=== PATIENT | male | born 1980 | race Caucasian/White ===

== ENCOUNTER 2024-12-26 09:17 | Outpatient (AMB) | payer BC, SELFPAY ==
--- NOTE | 2024-12-26 09:16 | MHC.OFFWIV ---
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 no known injuries Patient Tobacco Use Status: Never used Tobacco Allergies No Known Allergies [No Known Allergies*] Allergy (Unverified 12/26/24 09:18) Do you need a note to return to daycare/school/sports/work: No HPI HPI Comments History of Present Illness Details He presents to office with L leg bruise Did not notice a bruise last night before going to work He does a lot of walking and sits and stands. [employer] presses for bio research. Said around 7am he brushed his legs together and felt a bump to inner L knee and noticed a lump with redness Since then has gotten larger and bright purple/blue Worse pinching pain; pain when palpating it Doesnt remember any trauma He is not on any blood thinners L leg has not given out on his or anything Pain with walking; pinches just to that area He denies any medicine for it Pt sees PCP in [facility] and said renal and liver function within normal limits and checked q6 month due to current medication regimen [facility] Social History Patient Tobacco Use Status: Never used Tobacco Review of Systems Const Denies chills and Denies fever(s) Eyes Denies change in vision Card Denies chest pain and Denies dyspnea Resp Denies cough and Denies dyspnea Musc Reports deformity (L medial knee edema, skin color changes, pinching pain), Denies numbness and Denies tingling Skin/Breast Denies erythema and Reports unusual bruising (L medical knee) Neuro Denies numbness, Denies tingling and Denies paresthesias Physical Exam Vital Signs: Last Vital Signs Pulse 84 12/26/24 09:18 BP 126/88 12/26/24 09:18 Pulse Ox 97 12/26/24 09:18 Oxygen Delivery Method Room Air 12/26/24 09:18 General: Non-toxic, NAD. Speaking full sentences. Skin: Warm dry throughout LLE--> medial aspect knee pt has indurated circular region approx 2cm x 3cm with overlaying blue/purple discoloration. + ttp. No laceration or abrasion No lower calf/leg edema noted Eye: EOMI Respiratory: No tachypnea Cardiac: LLE DP pulse 2+. No LLE calf tenderness or pedal edema MSK: + full ROM flexion/extension LLE at L knee. Neurology: Alert. No aphasia or facial droop. Gait without abnormality Psych: Good mood and affect Assessment & Plan Assessment & Plan (1) Hematoma of left lower leg: Code(s): S80.12XA - Contusion of left lower leg, initial encounter Plan: Pt seen and evaluated Area seems consistent with atraumatic hematoma MARYBETH given for compress Discussed tx of ice and elevation Discussed change of symptoms/coloration US ordered for DVT r/o and hematoma evaluation Pt agreed with tx Has no additional question or concerns Discussed warning signs such as increased pain, leg edema worse, CP, SOB etc go to ER\ Pt gave verbal undertanding (2) Leg pain, left: Code(s): M79.605 - Pain in left leg Plan: see above Orders: Orders US extremity nonvascular moore Today S80.12XA - Contusion of left lower leg, initial encounter US venous duplex LE LT Today S80.12XA - Contusion of left lower leg, initial encounter Coding Level of Care Code New Pt Level 3 (38765) Diagnoses Hematoma of left lower leg S80.12XA Leg pain, left M79.605
[2024-12-26 09:18] VITALS: BP 126/88; PULSE 84; O2SAT 97
== END 2024-12-26 09:54 | disposition home or self-care (01) ==
PROVIDERS: Visit Provider Physician Assistant
DX: S80.12XA Contusion of left lower leg, initial encounter (principal); M79.605 Pain in left leg

== ENCOUNTER 2024-12-26 09:17 | Outpatient (REF) | payer BC, SELFPAY ==
--- OUTSIDE RECORDS SUMMARY | 2024-12-26 11:23 | XMS_ITS | Encounter Summary ---
Author Organization [facility] Address [address] [place] [address] Phone Care Team Providers Care Dye House Supervisor Name Role Phone Jody Stephens MD Primary Care Provider [phone] Manuel Mcdaniel MD Primary Care Provider [phone] Encounter Details Date Type Department Care Team (Latest Contact Info) Description 07/03/2019 Transcribe Orders [facility] [address] [place] [address] Juvenal Hale MD [address] [place] [address], [address] [place], [place] [id number] [email or web address] Posterior cyclitis, unspecified laterality (Primary Dx) Social History Tobacco Use Types Packs/Day Years Used Date Smoking Tobacco: Never Assessed Sex and Gender Information Value Date Recorded Sex Assigned at Male 10/15/2022 10:48 AM EST Gender Identity Male 10/15/2022 10:48 AM EST Sexual Orientation Straight 10/15/2022 10 :48 AM EST documented as of this encounter Plan of Treatment Upcoming Encounters Date Type Department Care Team (Late st Contact Info) Description 05/07/2025 9:15 AM EDT Appointment [facility] [place] [facility] [address] [place] [address] [phone] Manuel Mcdaniel MD [address] [place], [place] [phone] [email or web address] documented as of this encounter Results * (ABNORMAL) Comprehensive metabolic panel (07/03/2019 10:41 AM EDT) SODIUM 143 133 - 146 mmol/L [facility] POTASSIUM 4.0 3.3 - 5.1 mmol/L [facility] CHLORIDE 106 96 - 108 mmol/L [facility] CO2 26 21 - 35 mmol/L [facility] BUN 11 6 - 19 mg/dL [facility] CREATININE 0.90 0.5 - 1.5 mg/dL [facility] GLUCOSE 112(H) 70 - 99 mg/dL [facility] ALBUMIN 4.4 3.9 - 4.8 g/dL [facility] TOTAL PROTEIN 7.0 6.5 - 8.0 g/dL [facility] CALCIUM 9.3 8.4 - 10.3 mg/dL [facility] ALKALINE PHOSPHATASE 58 39 - 117 U/L [facility] TOTAL BILIRUBIN 0.3 0.0 - 1.2 mg/dL [facility] AST 18 0 - 37 U/L [facility] ALT 22 0 - 40 U/L [facility] GLOBULIN 2.6 1 - 4.8 g/dL [facility] EGFR 109 >59 mL/min/1.7 3m2 [facility] Comment:If patient is black, multiply result by 1.159. Estimated glomerular filtration rate calculated using the CKD-EPI equation. ANION GAP 15 10 - 20 mmol/L [facility] Blood 07/03/2019 10:4 1 AM EDT 07/03/2019 10:52 AM EDT Juvenal Hale MD LAB BLOOD ORDERABLES [facility] [address] [place] [address] * Quantiferon-TB Gold (07/03/2019 10:41 AM EDT) Pathologist [facility] QuantiFERON-TB Gold Negative Negative [facility] Comment: (NOTE) No interferon-gamma response to M. tuberculosis antigens was detected. Infection with M. tuberculosis is unlikely. A single negative result does not exclude infection with M. tuberculosis. In patients at high risk for M.tuberculosis infection, a second test should be considered in accordance with the 2017 ATS/IDSA/CDC Clinical Practice Guidelines for Diagnosis of Tuberculosis in Adults and Children [Carlos Manuel DM et. al. Clin. Infect. Dis. 2017;64(2):111-115]. The reference range for the 'TB1 Ag minus Nil Result' and 'TB2 Ag minus Nil Result' is an Interferon-gamma level <0.35 IU/mL. TB1 Ag minus Nil 0.00 IU/mL [facility] [address] TB2 Ag minus Nil 0.00 IU/mL [facility]/PATH [address] Mitogen minus Nil 9.58 IU/mL [facility] LAB MED/[facility] [place] [address] Nil Result 0.02 IU/mL [facility] [place] Blood 07/03/2019 10:4 1 AM EDT 07/03/2019 10:52 AM EDT Juvenal Hale MD LAB BLOOD ORDERABLES Performing Organization Address [facility] de Phone Number [facility] [place] [address] [place] [address] * Syphilis antibody screen (07/03/2019 10:41 AM EDT) RPR NON-REACTIV E NON-REACTI VE [facility] Blood 07/03/2019 10:4 1 AM EDT 07/03/2019 10:52 AM EDT Juvenal Hale MD LAB BLOOD ORDERABLES Performing Organization Address City/[facility] Co de Phone Number [address] [address] * Hepatitis B surface antigen (07/03/2019 10:41 AM EDT) HBV SURFACE ANTIGEN NON-REACTI VE NON-REACTI VE [facility] Blood 07/03/2019 10:4 1 AM EDT 07/03/2019 10:52 AM EDT Juvenal Hale MD LAB BLOOD ORDERABLES Performing Organization Address City/[facility] Co de Phone Number [address] [address] * Lysozyme (muramidase), blood (07/03/2019 10:41 AM EDT) LYSOZYME 4.5 2.7 - 9.4 mcg/mL [facility] DPT OF LAB MED AND PAT+ Comment: (NOTE) ADDITIONAL INFORMATION This test was developed and its performance characteristics determined by [facility] in a manner consistent with CLIA requirements. This test has not been cleared or approved by the U.S. Food and Drug Administration. Blood 07/03/2019 10:4 1 AM EDT 07/03/2019 10:49 AM EDT Juvenal Hale MD LAB BLOOD ORDERABLES Performing Organization Address [facility] Co de Phone Number [facility] DPT OF LAB MED AND PAT+ [address] [place] [address] * Lyme screen with reflex to Western blot, blood (07/03/2019 10:41 AM EDT) Lyme AB IgG Negative Negative [facility] Lyme AB IgM Negative Negative [facility] Blood 07/03/2019 10:4 1 AM EDT 07/03/2019 10:52 AM EDT Juvenal Hale MD LAB BLOOD ORDERABLES Performing Organization Address [facility] Co de Phone Number [address] [address] * HLA-B27, BLOOD (07/03/2019 10:41 AM EDT) HLA-B27 RESULT Negative Not Applicable [facility] DPT OF LAB MED AND PAT+ INTERPRETATION SEE NOTE [facility] DPT OF LAB MED AND PAT+ Comment: (NOTE) HLA-B27 antigen was not detected. ADDITIONAL INFORMATION Method: Flow Cytometry Blood 07/03/2019 10:4 1 AM EDT 07/03/2019 10:49 AM EDT Juvenal Hale MD LAB BLOOD ORDERABLES [facility] DPT OF LAB MED AND PAT+ [address] [place] [address] * (ABNORMAL) Angiotensin converting enzyme, blood (07/03/2019 10:41 AM EDT) ANGIOTENSIN CONV. ENZ <5(L) 16 - 85 U/L [facility] DPT OF LAB MED AND PAT+ Blood 07/03/2019 10:4 1 AM EDT 07/03/2019 10:49 AM EDT Juvenal Hale MD LAB BLOOD ORDERABLES Performing Organization Address [facility] Co de Phone Number [facility] DPT OF LAB MED AND PAT+ [address] [place] [address] * CBC and differential (07/03/2019 10:41 AM EDT) WBC 8.59 3.40 - 11.20 K/uL [facility] RBC 4.88 4.50 - 5.50 M/uL [facility] HGB 14.9 13.0 - 17.0 g/dL [facility] HCT 43.4 40.0 - 51.0 % [facility] PLT 184 130 - 400 K/uL [facility] MCV 88.9 79.0 - 98.0 fL [facility] MCH 30.5 27.0 - 34.8 pg [facility] MCHC 34.3 31.5 - 36.0 g/dL [facility] RDW 12.7 10.8 - 14.6 % [facility] MPV 9.7 9.4 - 12.4 fl [facility] NRBC 0.00 0.00 /100 WBCs [facility] ABSOLUTE NRBC 0.00 0.00 K/uL [facility] DIFF METHOD Auto [facility] NEUTS 67.3 45.30 - 77.70 % [facility] LYMPHS 24.3 12.30 - 39.70 % [facility] MONOS 5.5 4.10 - 12.80 % [facility] EOS 2.4 0 - 7.2 % [facility] BASOS 0.3 0 - 2.80 % [facility] Granulocytes, immature (%) 0.2 0.0 - 0.9 % [facility] ABSOLUTE NEUTS 5.77 1.40 - 7.70 K/uL [facility] ABSOLUTE LYMPHS 2.09 0.60 - 3.20 K/uL [facility] ABSOLUTE MONOS 0.47 0.11 - 0.59 K/uL [facility] ABSOLUTE EOS 0.21 0.01 - 0.50 K/uL [facility] ABSOLUTE BASOS 0.03 0.00 - 0.08 K/uL [facility] Granulocytes, immature 0.02 0.00 - 0.05 K/uL [facility] Blood 07/03/2019 10:4 1 AM EDT 07/03/2019 10:52 AM EDT Juvenal Hale MD LAB BLOOD ORDERABLES [address] [address] documented in this encounter Visit Diagnoses Diagnosis Posterior cyclitis, unspecified laterality- Primary documented in this encounter Care Teams Dye House Supervisor Relationship Specialty Start Date End Date Jody Stephens MD [address] [place] [address] Dr CHIN [address] [place] [phone] PCP - General Internal Medicine 07/03/19 12/01/20 Manuel Mcdaniel MD [address] [place] [phone] [email or web address] PCP - General Internal Medicine 12/02/20 documented as of this encounter Additional Source Comments The information contained in this document represents components of the legal health record. It is not the complete legal health record.[facility]
--- OUTSIDE RECORDS SUMMARY | 2024-12-26 11:23 | XMS_ITS | Encounter Summary ---
Author Organization [facility] Address [address] [place] [id number] Phone Care Team Providers Care Warp Knitter Helper Name Role Phone Manuel Mcdaniel MD Primary Care Provider [phone] Reason for Visit * Reason Comments Medication Refill Encounter Details Date Type Department Care Team (Late st Contact Info) Description 12/21/2024 Refill [facility] Internal Medicine [address] [place] [address] Manuel Mcdaniel MD [address] [place] [address] [email or web address] Medication Refill Social History Tobacco Use Types Packs/Day Years Used Date Smoking Tobacco: Never Passive Smoke Exposure: Yes Smokeless Tobacco: Never Comments:mother and father s moked during childhood Alcohol Use Standard Drinks/Week Comments Yes 0 (1 standard drink = 0.6 oz pur e alcohol) casual Child or Family Care Answer Date Record ed Do you have problems with on e of the following making it difficult for you to work, study, or receive health care? No 11/01/2024 Education Answer Date Recorded Are you interested in help w ith more adult education (for example, completing high school, GED, job training, learning the Indonesian language, technical skills, or developing parenting skills)? No 11/01/2024 Are you concerned about learning? Not on file 11/01/2024 No 11/01/2024 Yes 11/01/2024 Food Answer Date Recorded Within the past 6 months we worried whether our food would run out before we got money to buy more. Never True 11/01/2024 Within the past 6 months the food we bought just didn't last and we didn't have enough money to get more. Never True Residential Stability Answer Date Recor ded What is your housing situation today? I have tressa morfin 11/01/2024 How many times have you move d in the past 12 months? Zero (I did not move) 11/01/2024 Paying for Meds Answer Date Recorded Do you have trouble paying for medicines? I radha se not to answer 11/01/2024 Paying Utility Bills Answer Date Record ed Do you have trouble paying y our heating or electricity bill? I choose not to answer 11/01/2024 Transportation Answer Date Recorded Has the lack of transportati on kept you from medical appointments or from getting medications? No 11/01/2024 Unemployment Answer Date Recorded Are you currently unemployed or working on a part-time or temporary basis, and looking for work? No 11/01/2024 Digital Access Answer Date Recorded No 11/01/2024 Yes 11/01/2024 Do you have reliable internet access at home? Ye s 11/01/2024 Do you have a device (e.g., phone, tablet, computer) with a working camera? Yes 11/01/2024 Intimate Partner Violence Answer Date R ecorded Denied Basic Needs Not on file 11/01/2024 In the past 12 months have y ou been in a relationship with a person who hurts, threatens, or tries to control you? No 11/01/2024 Worried food would run out Not on file 11/01 In the past 12 months have y ou been in a relationship with a person who hurts, threatens, or tries to control you? No 11/01/2024 Sex and Gender Information Value Date Recorded Sex Assigned at Male 10/15/2022 10:48 AM EST Gender Identity Male 10/15/2022 10:48 AM EST Sexual Orientation Straight 10/15/2022 10 :48 AM EST documented as of this encounter Progress Notes * Judi Christopher CMA - 12/21/2024 7:06 AM EDT Rx Care Gap Status - Instructions for Clinical Staff (prescriber discretion applies): n/a Visit Info Last visit: 11/01/2024 Manuel Mcdaniel MD - [facility] > Requested f/u: Return in about 6 months (around 05/01/2025) for Recheck. Upcoming visit: 05/07/2025 Manuel Mcdaniel MD - Internal Medicine [facility] ACTIONS TAKEN BY Judi Christopher CMA - No action needed by clinical staff Cholesterol Medication Rx Protocol - atorvastatin calcium Criteria met; renew for up to 12 months. Visit in the past 14 months: Yes Clinical criteria: - Lipid panel within past year: Yes Lab Results Component Value Date LDL 102 11/02/2024 HDL 46 11/02/2024 CARDIAC RISK RATIO 3.7 11/02/2024 TRIGLYCERIDES 117 11/02/2024 CHOLESTEROL 171 11/02/2024 documented in this encounter Plan of Treatment Upcoming Encounters Date Type Department Care Team (Late st Contact Info) Description 05/07/2025 9:15 AM EDT Appointment [facility] Internal Medicine [address] [place] [address] Manuel Mcdaniel MD [address] [place] [address] [email or web address] documented as of this encounter Visit Diagnoses Diagnosis Hyperlipidemia Other and unspecified hyperlipidemia documented in this encounter Additional Health Concerns Assessment Noted Time PHQ-9 Depression Total Score: 4 11/01/19 25 9:38 AM EST PHQ-2 Depression Total Score: 3 11/01/19 25 9:38 AM EST documented as of this encounter Care Teams Warp Knitter Helper Relationship Specialty Start Date End Date Manuel Mcdaniel MD [address] [place] [address] [email or web address] PCP - General Internal Medicine 12/02/20 documented as of this encounter Additional Source Comments The information contained in this document represents components of the legal health record. It is not the complete legal health record.[facility]
--- OUTSIDE RECORDS SUMMARY | 2024-12-26 11:23 | XMS_ITS | Clinical Summary ---
Author Organization Formerly [facility] Address [address] [place] [phone] Phone Care Team Providers Care Experimental Physicist Name Role Phone Manuel Mcdaniel MD Primary Care Provider [phone] Allergies No known active allergies Medications Medication Sig Dispensed Refills Start Date End Date Status albuterol (PROAIR HFA) 90 mcg/actuation inhalerIndications :Mild intermittent asthma without complication Inhale 2 puffs into the lungs every 6 (six) hours as needed for wheezing. 1 Inhaler 1 01/28/2021 Active cetirizine (ZYRTEC) 10 MG tablet Take 10 mg by mouth daily. Active acetaminophen (TYLENOL) 650 MG CR tablet Take 1,300 mg by mouth 2 (two) times a day as needed for pain (specific location in comments). Active fluticasone propionate (FLONASE) 50 mcg/actuation nasal sprayIndications:P ND (post-nasal drip) 1 spray by Nasal route daily. 16 g 2 10/19/2023 Active citalopram (CELEXA) 40 MG tabletIndications: Anxiety and depression take one tablet by mouth every day 90 tablet 3 12/20/2023 Active naproxen sodium (ALEVE) 220 MG tablet Take 220 mg by mouth as needed for pain (specific location in comments). Active lisinopril (PRINIVIL,ZESTRIL) 40 MG tabletIndications: Essential hypertension TAKE ONE TABLET BY MOUTH EVERY DAY 30 tablet 11 11/21/2024 Active atorvastatin (LIPITOR) 20 MG tabletIndications: Hyperlipidemia TAKE ONE-HALF TABLET BY MOUTH EVERY DAY 45 tablet 3 12/21/2024 Active atorvastatin (LIPITOR) 20 MG tabletIndications: Hyperlipidemia Take 0.5 tablets (10 mg total) by mouth daily. 45 tablet 3 12/01/2023 5 Discontinued Active Problems Problem Noted Date Diagnosed Date PND (post-nasal drip) 10/19/2023 Acute otitis externa of right ear 05/13/2023 Assessment & Plan (05/13/2023 11:49 AM EDT): Here for re ildefonso- currently taking cortomycin ear drop 4 x a day that he got at . Cont same. He will reach out if s/s worsen Obstructive sleep apnea alan umberto with continuous positive airway pressure (CPAP) 08/17/2021 Assessment & Plan (11/01/2024 10:18 AM EST): DOE for which she is using CPAP machine we are encouraging him to stay consistent with using it. Assessment & Plan (03/10/2022 9:26 AM EDT): He is compliant with the CPAP machine. Assessment & Plan (08/17/2021 9:45 AM EST): Patient compliant with treatment, continue CPAP for mask as before, patient deriving good benefit from this treatment. Anxiety and depression 08/17/2021 Assessment & Plan (11/01/2024 10:19 AM EST): Anxiety and depression managed with Celexa, will continue to follow in 6 months and if he wishes we can investigate increasing the dose if need be at this point we will keep it at 40 mg. Assessment & Plan (10/15/2022 11:16 AM EST): Depression and anxiety appears to be held in check with the Celexa at its current dosing. He does have counseling through work available but he finds that everything is going smoothly enough where its not needed at this time. We will continue with the Celexa at its current dosing and follow-up in 6 months. Assessment & Plan (10/12/2021 9:10 AM EST): Celexa is working well at the current dosing, will maintain him now at Celexa 40 mg. Follow-up on physical exam in 5 months. Assessment & Plan (08/17/2021 9:48 AM EST): Main reason the patient is following up with us aside from dyslipidemia and hypertension includes also the Celexa which we have taken on as prescribers. With the Celexa 20 mg, the patient felt was inadequately treating depression anxiety and he had bumped up the Celexa to 40 mg at his brother's advice who is a nurse. I first felt a little bit of brain fog but then felt better overall on the new dose. He did take it down to Celexa 20 mg and waited to this appointment to discuss it with me. Since he seems to be doing better on the higher dose we will increase it formally then to 40 mg though I do advised him to consult his first before increasing medicine. We will follow up then in 8 weeks with prior labs. Routine general medical exam in[facility] 03/04/2021 Assessment & Plan (11/01/2024 10:20 AM EST): Exam positive for obesity but improved from previous, otherwise negative exam. Lungs are clear, heart regular rate and rhythm. Will see the patient back in 6 months to follow-up on his chronic medical conditions. He will come back for a Chem-12 CBC lipid profile tomorrow fasting. Given the 3-year history of occasional nausea vomiting and dyspepsia with fullness within the upper abdomen will make a referral to [facility]. Assessment & Plan (10/19/2023 10:15 AM EST): The patient's labs were discussed, all the metrics have improved and in the setting of weight loss. The patient states that he had reduced his soda intake drastically and then I told him that had reflected itself in the lab work and his weight loss. I encouraged him to continue with that line of good habit forming. His exam positive for an umbilical hernia which I made mention of. Also we saw the postnasal drip cobblestoning very pronounced at the back of the throat that matched up well with his complaint of postnasal drip. Called in some Flonase and went over how to use it properly. I can see him back in 6 months. His anxiety is well-controlled with the Celexa at 40 and his blood pressure is well-controlled at 40 mg of lisinopril. He is on atorvastatin 20 and this appears to be working well for his cholesterol. We can repeat labs in 6 months. Assessment & Plan (03/10/2022 9:28 AM EDT): And counseled the patient on low-sodium diet and we talked about increments and dietary changes, he is doing Golo to try and lose weight. We encouraged him to use this avenue to see if he can sustain weight loss. We will see him back in regards to his hypertension dyslipidemia and anxiety disorder and will repeat A1c and if A1c normal then we will just do it yearly. So 15-minute follow-up with prior labs in 6 months. Assessment & Plan (03/04/2021 9:39 AM EDT): No overt pathology seen on exam except for patient's obesity. Blood pressure arguably could be better, we encourage the patient to a low-sodium diet and counseled him on hidden salt which she was already aware of. Class 2 obesity due to exces s calories without serious comorbidity with body mass index (BMI) of 39.0 to 39.9 in adult 12/01/2020 Assessment & Plan (11/01/2024 10:19 AM EST): He had lost some weight intentionally and has kept it down from 310-2 79 so we are encouraging him to continue discretionary diet with moderate calorie restriction perhaps with the goal for an additional 20 pounds in the next 6 months. Assessment & Plan (10/15/2022 11:15 AM EST): counseled the pt on eating a low calorie diet to reduce excess weight. We talked about calorie restriction, weight watchers and exercise as possible to help move weight in the right direction. We can stop monitoring the hemoglobin A1c which comes back each time well within normal range. Assessment & Plan (03/10/2022 9:26 AM EDT): counseled the pt on eating a low calorie diet to reduce excess weight. We talked about calorie restriction, weight watchers and exercise as possible to help move weight in the right direction. Assessment & Plan (10/12/2021 9:11 AM EST): He has a hemoglobin A1c in the high normal range, we encouraged him to continue to work on his diet over the winter. Assessment & Plan (03/04/2021 9:44 AM EDT): counseled the pt on eating a low calorie diet to reduce excess weight. We talked about calorie restriction, weight watchers and exercise as possible to help move weight in the right direction. Assessment & Plan (12/01/2020 8:13 PM EDT): Obese for height counseled the pt on eating a low calorie diet to reduce excess weight. We talked about calorie restriction, weight watchers and exercise as possible to help move weight in the right direction. We will work with the patient on his physical exam to see if we can move in this direction. Essential hypertension 12/01/2020 Assessment & Plan (11/01/2024 10:18 AM EST): Blood pressure in good control, we can follow-up in 6 months and we encouraged him to check blood pressure at home occasionally. Assessment & Plan (10/15/2022 11:15 AM EST): Hypertension well controlled with current listed antihypertensives. Denies side effects No change to dosing. Low Sodium diet reinforced. Continue to monitor condition. Labs done showing electrolytes kidney function well within normal range. Low- sodium diet reinforced. Assessment & Plan (03/10/2022 9:26 AM EDT): Hypertension well controlled with current listed antihypertensives. Denies side effects No change to dosing. Low Sodium diet reinforced. Continue to monitor condition. Assessment & Plan (10/12/2021 9:11 AM EST): Hypertension well controlled with current listed antihypertensives. Denies side effects No change to dosing. Low Sodium diet reinforced. Continue to monitor condition. Electrolytes kidney function well within normal range. Assessment & Plan (08/17/2021 9:45 AM EST): Hypertension well controlled with current listed antihypertensives. Denies side effects No change to dosing. Low Sodium diet reinforced. Continue to monitor condition. Check c7 before next appt. Assessment & Plan (12/01/2020 8:11 PM EDT): Blood pressure appears to be well controlled on the current regimen of lisinopril. Low-sodium diet reinforced, patient can potentially come off of the lisinopril with weight loss. Watch out for hidden salts. Obtain electrolytes kidney function at a later date, patient will come back fasting. Hyperlipidemia 12/01/2020 Assessment & Plan (11/01/2024 10:19 AM EST): Will check fasting labs, continue statin therapy and will check liver enzymes as well. Assessment & Plan (10/15/2022 11:16 AM EST): Low-dose Lipitor at 10 mg holding the LDL within target range, continue as you are doing. Recheck in 6 months with liver enzymes. Assessment & Plan (03/10/2022 9:27 AM EDT): Previous lipid profile within target range, continue current management, reinforcing low fat diet, emphasizing lean cuts of meat and low dairy fat, while increasing fiber. Assessment & Plan (10/12/2021 9:11 AM EST): Lipid panel came back within target range continue atorvastatin at 20 mg. Assessment & Plan (08/17/2021 9:46 AM EST): In December lipid panel on the Lipitor 20 mg appears to be adequately treated, reassess prior to next visit in 8 weeks. Low-fat diet suggested. Assessment & Plan (12/01/2020 8:12 PM EDT): Continue atorvastatin 20 mg, will obtain a lipid profile with liver enzymes for baseline. Will adjust atorvastatin accordingly if need be, low-fat diet reinforced. Especially saturated fats dairy in both animal. Resolved Problems Problem Noted Date Diagnosed Date Resolved Date Acute bronchitis 09/15/2022 10/15/2022 Assessment & Plan (09/15/2022 10:07 AM EST): Although this started off as a viral bronchitis there are components noted speak for persistence through secondary bacterial infection therefore the doxycycline 100 mg twice daily for 7 days. In regards to the eyes after the conjunctivitis, apply 1 drop of antihistamine twice daily for about 5 days. Encounters Date Type Department Care Team Description 12/21/2024 Refill [facility] Internal Medicine [address] [place] [address] Manuel Mcdaniel MD Medication Refill 11/21/2024 Refill [facility] [address] [place] [address] Manuel Mcdaniel MD Medication Refill 11/13/2024 Telephone [facility] Internal Medicine [address] [place] [address] Manuel Mcdaniel MD Results 11/02/2024 8:44 AM EST - 11/02/2024 11:59 PM EST Hospital Encounter [facility] [address] [place] [address] Manuel Mcdaniel MD Discharge Disposition: Home or Self Care 11/01/2024 9:30 AM EST Office Visit [facility] [address] [place] [address] Manuel Mcdaniel MD Routine general medical examination at a health care facility (Primary Dx); Essential hypertension; Hyperlipidemia, unspecified hyperlipidemia type; Obstructive sleep apnea treated with continuous positive airway pressure (CPAP); Class 2 obesity due to excess calories without serious comorbidity with body mass index (BMI) of 39.0 to 39.9 in adult; Anxiety and depression; Nausea and vomiting, unspecified vomiting type from Last 3 Months Immunizations Name Administration Dates Next Due Influenza Trivalent w/ Preservative IM 4,06/29/2013 Td (adult) 5 Lf Tetanus Toxoid, PF, Adsorbed Family History Medical History Relation Comments Hypertension Father Melanoma Maternal Grandfather Stomach cancer Maternal Grandmother Diverticulitis Mother Hyperlipidemia Mother Pneumonia Paternal Grandmother Leukemia Sister Relation Status Comments Father Maternal Grandfather Maternal Grandmother Mother Paternal Grandmother Sister (Age 11) of leukem ia Social History Tobacco Use Types Packs/Day Years Used Date Smoking Tobacco: Never Passive Smoke Exposure: Yes Smokeless Tobacco: Never Tobacco Cessation:Counseling Given: Not Answered Comments:mother and father smoked during childhood Alcohol Use Standard Drinks/Week Comments [...] high school, GED, job training, learning the [place] language, technical skills, or developing parenting skills)? [...] Orientation Straight 10/15/2022 10 :48 AM EST Last Filed Vital Signs Vital Sign Reading Time Taken Comments Blood Pressure 122/62 11/01/2024 9:35 AM EST Pulse 85 11/01/2024 9:35 AM EST Temperature 36.6 ??C (97.8 ??F) 11/01/2024 9:35 AM ES T Respiratory Rate 20 11/01/2024 9:35 AM EST Oxygen Saturation 98% 11/01/2024 9:35 AM EST Inhaled Oxygen Concentration - - Weight 126.7 kg (279 lb 6.4 oz) 11/01/2024 9:35 AM EST Height 174.8 cm (5' 8.82 ) 11/01/2024 9:35 AM ES T Body Mass Index 41.48 11/01/2024 9:35 AM EST Plan of Treatment Upcoming Encounters Date Type Department Care Team (Late st Contact Info) Description 05/07/2025 9:15 AM EDT Appointment [facility] [place] [facility] [address] [place] [address] Manuel Mcdaniel MD [address] [place] [address] [email or web address] Health Maintenance Due Date Last Done Comments INFLUENZA VACCINE (#1) 2024 06/21/2014, 10/18/ 2013 COVID-19 VACCINE ( season) 2024 05/03/2021, 04/12/2021 BLOOD PRESSURE 05/01/2025 11/01/2024 DEPRESSION SCREENING 11/01/2025 11/01/2024, 11/01/19 CREATININE LEVEL 11/02/2025 11/02/2024, 10/2023, 10/12/2022, Additional history exists POTASSIUM LEVEL 11/02/2025 11/02/2024, 020 10/2023, 10/12/2022, Additional history exists SCREENING FOR DIABETES 11/02/2027 11/02/2024, 2022 LIPID PANEL 11/02/2029 11/02/2024, 10/2023, 10/12/2022, Additional history exists Adult Td,Tdap Booster 03/04/2031 03/04/2021 HEPATITIS C SCREENING Completed 12/23/2020 HIV ONE-TIME SCREENING (18-65 YEARS) Completed 12/23/2020 SMOKING STATUS SCREENING (Once After 26 Yrs) Completed 11/01/2024 HEPATITIS A VACCINES Aged Out No long er eligible based on patient's age to complete this topic HIB VACCINES Aged Out No longer eligi ble based on patient's age to complete this topic MENINGOCOCCAL VACCINES (ACWY) Aged Out No longer eligible based on patient's age to complete this topic PNEUMOCOCCAL VACCINES (0-49 years) Aged Out No longer eligible based on patient's age to complete this topic Medical Devices Not on file Procedures Procedure Name Priority Date/Time Associated Diagnosis Comments LIPID PANEL Routine 11/02/2024 8:44 AM EST Hyperlipidemia, unspecified hyperlipidemia type CBC Routine 11/02/2024 8:44 AM EST Routine general medical examination at a health care facility COMPREHENSIVE METABOLIC PANEL Routine 11/02/2024 8:44 AM EST Routine general medical examination at a health care facility Essential hypertension Hyperlipidemia, unspecified hyperlipidemia type HEPATITIS C ANTIBODY, QUALITATIVE Routine 12/23/2020 8:12 AM EDT Encounter for hepatitis C screening test for low risk patient from Last 3 Months or Most Recently Relevant to Health Maintenance Results * Comprehensive metabolic panel (11/02/2024 8:44 AM EST) SODIUM 140 133 - 146 mmol/L [facility] POTASSIUM 4.5 3.3 - 5.1 mmol/L [facility] CHLORIDE 103 96 - 108 mmol/L [facility] CO2 26 21 - 35 mmol/L [facility] BUN 16 6 - 19 mg/dL [facility] CREATININE 0.90 0.5 - 1.5 mg/dL [facility] GLUCOSE 72 70 - 99 mg/dL [facility] ALBUMIN 4.6 3.9 - 4.8 g/dL [facility] TOTAL PROTEIN 6.9 6.5 - 8.0 g/dL [facility] CALCIUM 9.7 8.4 - 10.3 mg/dL [facility] ALKALINE PHOSPHATASE 59 39 - 117 U/L [facility] TOTAL BILIRUBIN 0.7 0.0 - 1.2 mg/dL [facility] AST 19 0 - 37 U/L [facility] ALT 21 0 - 40 U/L [facility] GLOBULIN 2.3 1 - 4.8 g/dL [facility] EGFR 109 >59 mL/min/1.7 3m2 [facility] Comment:Estimated glomerular filtration rate calculated using the CKD-EPI refit equation. ANION GAP 16 10 - 20 mmol/L [facility] Blood 11/02/2024 8:44 AM EST 11/02/2024 8:46 AM EST Manuel Mcdaniel MD LAB BLOOD ORDERABLES [address] [address] * CBC (11/02/2024 8:44 AM EST) WBC 8.88 4.00 - 11.00 K/uL [facility] RBC 5.01 4.50 - 5.90 M/uL [facility] HGB 15.1 13.5 - 17.5 g/dL [facility] HCT 45.7 41.0 - 53.0 % [facility] PLT 175 150 - 450 K/uL [facility] MCV 91.2 80.0 - 100.0 fL [facility] MCH 30.1 27.0 - 31.0 pg [facility] MCHC 33.0 32.0 - 36.0 g/dL [facility] RDW 13.1 11.5 - 14.5 % [facility] MPV 9.8 8.4 - 12.0 fL [facility] NRBC 0.00 0.00 /100 WBCs [facility] ABSOLUTE NRBC 0.00 0.00 K/uL [facility] Blood 11/02/2024 8:44 AM EST 11/02/2024 8:46 AM EST Manuel Mcdaniel MD LAB BLOOD ORDERABLES Performing Organization Address [facility] Co de Phone Number [address] [phone] * Lipid panel (11/02/2024 8:44 AM EST) HDL 46 mg/dL [facility] Comment: ? Interpretation <40 mg/dL: Low HDL cholesterol (major risk factor for CHD) Greater than or equal to 60 mg/dL: High HDL cholesterol ( negative risk factor for CHD) HDL - cholesterol is affected by a number of factors, e.g. smoking, excerise, hormones, sex and age. CHOLESTEROL 171 0 - 240 mg/dL [facility] TRIGLYCERIDES 117 30 - 160 mg/dL [facility] LDL 102 50 - 129 mg/dL [facility] Comment: LDL levels in terms of risk for coronary heart disease: <100 mg/dL: Optimal 100-129 mg/dL: Near or above optimal 130-159 mg/dL: Borderline high 160-189 mg/dL: High >190 mg/dL: Very High CARDIAC RISK RATIO 3.7 3.4 - 5.0 C [facility] Blood 11/02/2024 8:44 AM EST 11/02/2024 8:47 AM EST Manuel Mcdaniel MD LAB BLOOD ORDERABLES Performing Organization Address [facility] Co de Phone Number [address] [phone] * Hepatitis C antibody, qualitative (12/23/2020 8:12 AM EDT) HCV NON-REACTIV E NON-REACTI VE [facility] Blood 12/23/2020 8:12 AM EDT 12/23/2020 8:18 AM EDT Manuel Mcdaniel MD LAB BLOOD ORDERABLES [address] [address] from Last 3 Months or Most Recently Relevant to Health Maintenance Care Teams Experimental Physicist Relationship Specialty Start Date End Date Manuel Mcdaniel MD [address] [place] [address] [email or web address] PCP - General Internal Medicine 12/02/20 Additional Source Comments The information contained in this document represents components of the legal health record. It is not the complete legal health record.[facility]
--- OUTSIDE RECORDS SUMMARY | 2024-12-26 11:23 | XMS_ITS | Encounter Summary ---
Author Organization [facility] Address [address] [place] [phone] Phone Care Team Providers Care Professor Of Surgery Name Role Phone Jody Stephens MD Primary Care Provider [phone] Manuel Mcdaniel MD Primary Care Provider [phone] Reason for Referral * Occupational Therapy (Routine) - Closed Specialty Diagnoses / Procedures Referred By [facility] galindo Referred To Contact Occupational Therapy Diagnoses Encounter for rehabilitation Left Dorsal Distal Carpal Row Procedures Evaluate & Treat Antwon Irving MD [address] [place] [phone] Email: [email or web address] [place] [address] Referral ID Status Reason Start Date Expiration Date Visits Re quested Visits Authorized [id number] Closed 08/14/2019 09/11/2020 15 15 Encounter Details Date Type Department Care Team (Latest Contact Info) Description 08/14/2019 Transcribe Orders [facility] [address] [place] [address] [phone] Antwon Irving MD [address] [place] [phone] [email or web address] Encounter for rehabilitation (Primary Dx) Social History Tobacco Use Types [...] Info) Description 05/07/2025 9:15 AM EDT Appointment [facility] Internal Medicine [address] [place] [address] Manuel Mcdaniel MD [address] [place] [address] Scheduled Referrals Name Type Priority Associated Diagnoses Orde r Schedule Ambulatory referral to [facility] Occupational Therapy Outpatient Referral Routine Encounter for rehabilitation Ordered: 08/14/2019 documented as of this encounter Visit Diagnoses Diagnosis Encounter for rehabilitation- Primary documented in this encounter Care Teams Professor Of Surgery Relationship Specialty Start Date End Date Jody Stephens MD [address] [place] [address] [place] [address] PCP - General Internal Medicine 07/03/19 12/01/20 Manuel Mcdaniel MD [address] [place] [address] PCP - General Internal Medicine 12/02/20 documented as of this encounter Additional Source Comments The information contained in this document represents components of the legal health record. It is not the complete legal health record.[facility]
== END 2024-12-26 09:18 | disposition home or self-care (01) ==
LOC: HO.HMGCX 09:17
PROVIDERS: Visit Provider Physician Assistant
DX: Z13.89 Encounter for screening for other disorder (principal)

== ENCOUNTER 2024-12-26 13:28 | Outpatient (REF) | payer BC, SELFPAY ==
--- NOTE | ~2024-12-26 | US_ITS ---
EXAMINATION: US TRIPLEX LOWER EXTREMITY, LEFT CLINICAL INFORMATION: Bruising to left knee with unknown history of injury. Lower extremity edema. COMPARISON: None available. TECHNIQUE: Color-flow triplex imaging with spectral analysis and compression Doppler were performed on the left lower extremity. FINDINGS: Respiratory variation, normal compression and augmented flow are noted throughout the left lower extremity. The visualized common femoral vein, superficial femoral vein, profunda femoral vein, popliteal vein and midcalf peroneal and posterior tibial venous segments show no evidence of deep venous thrombosis. There is no Hayes's cyst. In the medial left knee, subjacent to the region of bruising, there is a small hematoma measuring 4.0 x 1.1 x 3.0 cm. US/US venous duplex LE IMPRESSION: 1. No evidence of deep venous thrombosis involving the left lower extremity. 2. Small hematoma in the medial knee subjacent to the area of bruising. Electronically signed by: López Akbar MD 12/26/2024 02:10 PM EDT
--- OUTSIDE RECORDS SUMMARY | 2024-12-26 16:04 | XMS_ITS | Encounter Summary ---
Author Organization [facility] Address [address] [place] [address] Phone Care Team Providers Care Certified Wellness Program Coordinator Name Role Phone Jody Stephens MD Primary Care Provider [phone] Manuel Mcdaniel MD Primary Care Provider [phone] Encounter Details Date Type Department Care Team (Latest Contact Info) Description 07/03/2019 Transcribe Orders [facility] Laboratory [address] [place] [address] Juvenal Hale MD [address] [place] [address], [address] [place], [place] [id number] [email or web address] Posterior cyclitis, unspecified laterality (Primary Dx) Social [...] Description 05/07/2025 9:15 AM EDT Appointment [facility] [address] [place] [phone] Manuel Mcdaniel MD [address] [place], [place] [id number] [email or web address] documented as of this encounter Results * (ABNORMAL) Comprehensive metabolic panel (07/03/2019 10:41 AM EDT) SODIUM 143 133 - 146 mmol/L POTASSIUM 4.0 3.3 - 5.1 mmol/L CHLORIDE 106 96 - 108 mmol/L CO2 26 21 - 35 mmol/L BUN 11 6 - 19 mg/dL CREATININE 0.90 0.5 - 1.5 mg/dL GLUCOSE 112(H) 70 - 99 mg/dL ALBUMIN 4.4 3.9 - 4.8 g/dL TOTAL PROTEIN 7.0 6.5 - 8.0 g/dL CALCIUM 9.3 8.4 - 10.3 mg/dL ALKALINE PHOSPHATASE 58 39 - 117 U/L TOTAL BILIRUBIN 0.3 0.0 - 1.2 mg/dL AST 18 0 - 37 U/L ALT 22 0 - 40 U/L GLOBULIN 2.6 1 - 4.8 g/dL EGFR 109 >59 mL/min/1.7 3m2 Comment:If patient is black, multiply result by 1.159. Estimated glomerular filtration rate calculated using the CKD-EPI equation. ANION GAP 15 10 - 20 mmol/L Blood 07/03/2019 10:4 1 AM EDT 07/03/2019 10:52 AM EDT Juvenal Hale MD LAB BLOOD ORDERABLES [address] [place] [address] * Quantiferon-TB Gold (07/03/2019 10:41 AM EDT) Pathologist [facility] QuantiFERON-TB Gold Negative Negative [place] [facility]PATH [place] Comment: (NOTE) No [...] Ag minus Nil 0.00 IU/mL [facility]PATH [address] TB2 Ag minus Nil 0.00 IU/mL [facility]/PATH [address] Mitogen minus Nil 9.58 IU/mL [facility] LAB [facility]/PATH [place] [address] Nil Result 0.02 IU/mL [facility]/PATH [place] Blood 07/03/2019 10:4 1 AM EDT 07/03/2019 10:52 AM EDT Juvenal Hale MD LAB BLOOD ORDERABLES Performing Organization Address [facility] de Phone Number [facility] [place] [address] [place] [address] * Syphilis antibody screen (07/03/2019 10:41 AM EDT) RPR NON-REACTIV E NON-REACTI VE Blood 07/03/2019 10:4 1 AM EDT 07/03/2019 10:52 AM EDT Juvenal Hale MD LAB BLOOD ORDERABLES Performing Organization Address City/[facility] Co de Phone Number [address] [address] * Hepatitis B surface antigen (07/03/2019 10:41 AM EDT) HBV SURFACE ANTIGEN NON-REACTI VE NON-REACTI VE Blood 07/03/2019 10:4 1 AM EDT 07/03/2019 10:52 AM EDT Juvenal Hale MD LAB BLOOD ORDERABLES Performing Organization Address [facility] Co de Phone Number [address] [address] * Lysozyme (muramidase), blood (07/03/2019 10:41 AM EDT) LYSOZYME 4.5 2.7 - 9.4 mcg/mL [facility] DPT OF LAB MED AND PAT+ Comment: (NOTE) ADDITIONAL INFORMATION This test was developed and its performance characteristics determined by [facility] in a manner consistent with CLIA requirements. This test has not been cleared or approved by the U.S. Food and Drug Administration. Blood 07/03/2019 10:4 1 AM EDT 07/03/2019 10:49 AM EDT Juvenal Hale MD LAB BLOOD ORDERABLES Performing Organization Address [facility] Co de Phone Number [facility] DPT OF LAB MED AND PAT+ [address] [place] [address] * Lyme screen with reflex to Western blot, blood (07/03/2019 10:41 AM EDT) Lyme AB IgG Negative Negative Lyme AB IgM Negative Negative Blood 07/03/2019 10:4 1 AM EDT 07/03/2019 10:52 AM EDT Juvenal Hale MD LAB BLOOD ORDERABLES Performing Organization Address [facility] Co de Phone Number [address] [address] * HLA-B27, BLOOD (07/03/2019 10:41 AM EDT) HLA-B27 RESULT Negative Not Applicable [facility] DPT OF LAB MED AND PAT+ INTERPRETATION SEE NOTE [facility] DPT OF LAB MED AND PAT+ Comment: (NOTE) HLA-B27 antigen was not detected. ADDITIONAL INFORMATION Method: Flow Cytometry Blood 07/03/2019 10:4 1 AM EDT 07/03/2019 10:49 AM EDT Juvenal Hale MD LAB BLOOD ORDERABLES [facility] DPT OF LAB MED AND PAT+ [address] [place] [address] * (ABNORMAL) Angiotensin converting enzyme, blood (07/03/2019 10:41 AM EDT) ANGIOTENSIN CONV. ENZ <5(L) 16 - 85 U/L [facility] DPT OF LAB MED AND PAT+ Blood 07/03/2019 10:4 1 AM EDT 07/03/2019 10:49 AM EDT Juvenal Hale MD LAB BLOOD ORDERABLES Performing Organization Address [facility] Co de Phone Number [facility] DPT OF LAB MED AND PAT+ [address] [place] [address] * CBC and differential (07/03/2019 10:41 AM EDT) WBC 8.59 3.40 - 11.20 K/uL RBC 4.88 4.50 - 5.50 M/uL HGB 14.9 13.0 - 17.0 g/dL HCT 43.4 40.0 - 51.0 % PLT 184 130 - 400 K/uL MCV 88.9 79.0 - 98.0 fL MCH 30.5 27.0 - 34.8 pg MCHC 34.3 31.5 - 36.0 g/dL RDW 12.7 10.8 - 14.6 % MPV 9.7 9.4 - 12.4 fl NRBC 0.00 0.00 /100 WBCs ABSOLUTE NRBC 0.00 0.00 K/uL DIFF METHOD Auto NEUTS 67.3 45.30 - 77.70 % LYMPHS 24.3 12.30 - 39.70 % MONOS 5.5 4.10 - 12.80 % EOS 2.4 0 - 7.2 % BASOS 0.3 0 - 2.80 % Granulocytes, immature (%) 0.2 0.0 - 0.9 % ABSOLUTE NEUTS 5.77 1.40 - 7.70 K/uL ABSOLUTE LYMPHS 2.09 0.60 - 3.20 K/uL ABSOLUTE MONOS 0.47 0.11 - 0.59 K/uL ABSOLUTE EOS 0.21 0.01 - 0.50 K/uL ABSOLUTE BASOS 0.03 0.00 - 0.08 K/uL Granulocytes, immature 0.02 0.00 - 0.05 K/uL Blood 07/03/2019 10:4 1 AM EDT 07/03/2019 10:52 AM EDT Juvenal Hale MD LAB BLOOD ORDERABLES [address] [address] documented in this encounter Visit Diagnoses Diagnosis Posterior cyclitis, unspecified laterality- Primary documented in this encounter Care Teams Certified Wellness Program Coordinator Relationship Specialty Start Date End Date Jody Stephens MD [address] [place] [address] Dr CHIN [address] [place] [phone] PCP - General Internal Medicine 07/03/19 12/01/20 Manuel Mcdaniel MD [address] [place] [id number] [email or web address] PCP - General Internal Medicine 12/02/20 documented as of this encounter Additional Source Comments The information contained in this document represents components of the legal health record. It is not the complete legal health record.[facility]
--- OUTSIDE RECORDS SUMMARY | 2024-12-26 16:04 | XMS_ITS | Clinical Summary ---
Author Organization [facility] Address [address] [place] [address] Phone Care Team Providers Care Lead Die Molder Name Role Phone Manuel Mcdaniel MD Primary Care Provider [phone] Allergies No known active allergies Medications Medication [...] Routine general medical exam ination at a [facility] facility 03/04/2021 Assessment & Plan (11/01/2024 [...] upper abdomen will make a referral to [facility]. Assessment & Plan (10/19/2023 10:15 AM [...] Type Department Care Team Description 12/21/2024 Refill [facility] Internal Medicine [address] [place] [address] Manuel Mcdaniel MD Medication Refill 11/21/2024 Refill [facility] Internal [facility] [address] [place] [address] Manuel Mcdaniel MD Medication Refill 11/13/2024 Telephone [facility] Internal Medicine [address] [place] [address] Manuel Mcdaniel MD Results 11/02/2024 8:44 AM EST - 11/02/2024 11:59 PM EST Hospital Encounter [facility] Laboratory [address] [place] [address] Manuel Mcdaniel MD Discharge Disposition: Home or Self Care 11/01/2024 9:30 AM EST Office Visit [facility] Internal [facility] [address] [place] [address] Manuel Mcdaniel MD Routine general medical examination [...] high school, GED, job training, learning the Albanian language, technical skills, or developing parenting skills)? [...] Info) Description 05/07/2025 9:15 AM EDT Appointment [facility] [place] Internal Medicine [address] [place] [address] Manuel Mcdaniel MD [address] [place] [address] [email or web address] Health Maintenance Due Date Last Done Comments [...] EST) SODIUM 140 133 - 146 mmol/L [facility] POTASSIUM 4.5 3.3 - 5.1 mmol/L [facility] CHLORIDE 103 96 - 108 mmol/L [facility] CO2 26 21 - 35 mmol/L [facility] BUN 16 6 - 19 mg/dL [facility] CREATININE 0.90 0.5 - 1.5 mg/dL [facility] GLUCOSE 72 70 - 99 mg/dL [facility] ALBUMIN 4.6 3.9 - 4.8 g/dL [facility] TOTAL PROTEIN 6.9 6.5 - 8.0 g/dL [facility] CALCIUM 9.7 8.4 - 10.3 mg/dL [facility] ALKALINE PHOSPHATASE 59 39 - 117 U/L [facility] TOTAL BILIRUBIN 0.7 0.0 - 1.2 mg/dL [facility] AST 19 0 - 37 U/L [facility] ALT 21 0 - 40 U/L [facility] GLOBULIN 2.3 1 - 4.8 g/dL [facility] EGFR 109 >59 mL/min/1.7 3m2 [facility] Comment:Estimated glomerular filtration rate calculated using the CKD-EPI refit equation. ANION GAP 16 10 - 20 mmol/L [facility] Blood 11/02/2024 8:44 AM EST 11/02/2024 8:46 AM EST Manuel Mcdaniel MD LAB BLOOD ORDERABLES [address] [address] * CBC (11/02/2024 8:44 AM EST) WBC 8.88 4.00 - 11.00 K/uL [facility] RBC 5.01 4.50 - 5.90 M/uL [facility] HGB 15.1 13.5 - 17.5 g/dL [facility] HCT 45.7 41.0 - 53.0 % [facility] PLT 175 150 - 450 K/uL [facility] MCV 91.2 80.0 - 100.0 fL [facility] MCH 30.1 27.0 - 31.0 pg [facility] MCHC 33.0 32.0 - 36.0 g/dL [facility] RDW 13.1 11.5 - 14.5 % [facility] MPV 9.8 8.4 - 12.0 fL [facility] NRBC 0.00 0.00 /100 WBCs [facility] ABSOLUTE NRBC 0.00 0.00 K/uL [facility] Blood 11/02/2024 8:44 AM EST 11/02/2024 8:46 AM EST Manuel Mcdaniel MD LAB BLOOD ORDERABLES Performing Organization Address [facility] Co de Phone Number [address] [address] * Lipid panel (11/02/2024 8:44 AM EST) HDL 46 mg/dL [facility] Comment: ? Interpretation <40 mg/dL: Low HDL cholesterol (major risk factor for CHD) Greater than or equal to 60 mg/dL: High HDL cholesterol ( negative risk factor for CHD) HDL - cholesterol is affected by a number of factors, e.g. smoking, excerise, hormones, sex and age. CHOLESTEROL 171 0 - 240 mg/dL [facility] TRIGLYCERIDES 117 30 - 160 mg/dL [facility] LDL 102 50 - 129 mg/dL [facility] Comment: LDL levels in terms of risk for coronary heart disease: <100 mg/dL: Optimal 100-129 mg/dL: Near or above optimal 130-159 mg/dL: Borderline high 160-189 mg/dL: High >190 mg/dL: Very High CARDIAC RISK RATIO 3.7 3.4 - 5.0 [facility] Blood 11/02/2024 8:44 AM EST 11/02/2024 8:47 AM EST Manuel Mcdaniel MD LAB BLOOD ORDERABLES Performing Organization Address [facility] Co de Phone Number [address] [address] * Hepatitis C antibody, qualitative (12/23/2020 8:12 AM EDT) HCV NON-REACTIV E NON-REACTI VE [facility] Blood 12/23/2020 8:12 AM EDT 12/23/2020 8:18 AM EDT Manuel Mcdaniel MD LAB BLOOD ORDERABLES [address] [address] from Last 3 Months or Most Recently Relevant to Health Maintenance Care Teams Lead Die Molder Relationship Specialty Start Date End Date Manuel Mcdaniel MD [address] [place] [address] [email or web address] PCP - General Internal Medicine 12/02/20 Additional Source Comments The information contained in this document represents components of the legal health record. It is not the complete legal health record.[facility]
--- OUTSIDE RECORDS SUMMARY | 2024-12-26 16:04 | XMS_ITS | Encounter Summary ---
Author Organization [facility] Address [address] [place] [address] Phone Care Team Providers Care Temple Marker Name Role Phone Manuel Mcdaniel MD Primary Care Provider [phone] Reason for Visit * Reason Comments Medication Refill Encounter Details Date Type Department Care Team (Late st Contact Info) Description 12/21/2024 Refill [facility] Internal Medicine [address] [place] [address] Manuel Mcdaniel MD [address] [place] [address] [email or web address] Medication Refill Social History Tobacco Use Types [...] high school, GED, job training, learning the Fijian language, technical skills, or developing parenting skills)? [...] you have trouble paying for medicines? I radah se not to answer 11/01/2024 Paying Utility [...] 11/01/2024 Manuel Mcdaniel MD - Internal Medicine [facility] > Requested f/u: Return in about 6 months (around 05/01/2025) for Recheck. Upcoming visit: 05/07/2025 Manuel Mcdaniel MD - Internal Medicine [facility] ACTIONS TAKEN BY Judi Christopher CMA [...] Info) Description 05/07/2025 9:15 AM EDT Appointment [facility] Internal Medicine [address] [place] [address] Manuel Mcdaniel MD [address] [place] [address] [email or web address] documented as of this encounter Visit Diagnoses Diagnosis Hyperlipidemia Other and unspecified hyperlipidemia documented in this encounter Additional Health Concerns Assessment Noted Time PHQ-9 Depression Total Score: 4 11/01/19 25 9:38 AM EST PHQ-2 Depression Total Score: 3 11/01/19 25 9:38 AM EST documented as of this encounter Care Teams Temple Marker Relationship Specialty Start Date End Date Manuel Mcdaniel MD [address] [place] [address] PCP - General Internal Medicine 12/02/20 documented as of this encounter Additional Source Comments The information contained in this document represents components of the legal health record. It is not the complete legal health record.[facility]
--- OUTSIDE RECORDS SUMMARY | 2024-12-26 16:04 | XMS_ITS | Encounter Summary ---
Author Organization [facility] Address [address] [place] [address] Phone Care Team Providers Care Interventional Sale Consultant Name Role Phone Jody Stephens MD Primary Care Provider Manuel Mcdaniel MD Primary Care Provider [phone] Reason for Referral * Occupational Therapy (Routine) - Closed Specialty Diagnoses / Procedures Referred By [facility] Referred To Contact Occupational Therapy Diagnoses Encounter for rehabilitation Left Dorsal Distal Carpal Row Procedures Evaluate & Treat Antwon Irving MD [address] [place] [phone] Email: [email or web address] [facility] Parent [address] [place] [address] Referral ID Status Reason Start Date Expiration Date Visits Re quested Visits Authorized [id number] Closed 08/14/2019 09/11/2020 15 15 Encounter Details Date Type Department Care Team (Latest Contact Info) Description 08/14/2019 Transcribe Orders [facility] [address] [place] [address] [phone] Antwon Irving MD [address] [place] [phone] [email or web address] Encounter for rehabilitation (Primary Dx) Social History [...] Info) Description 05/07/2025 9:15 AM EDT Appointment [facility] Internal Medicine [address] [place] [address] Manuel Mcdaniel MD [address] [place] [address] [email or web address] Scheduled Referrals Name Type Priority Associated Diagnoses Orde r Schedule Ambulatory referral to [facility] Occupational Therapy Outpatient Referral Routine Encounter for rehabilitation Ordered: 08/14/2019 documented as of this encounter Visit Diagnoses Diagnosis Encounter for rehabilitation- Primary documented in this encounter Care Teams Interventional Sale Consultant Relationship Specialty Start Date End Date Jody Stephens MD [address] [place] [address] [place] [address] PCP - General Internal Medicine 07/03/19 12/01/20 Manuel Mcdaniel MD [address] [place] [address] [email or web address] PCP - General Internal Medicine 12/02/20 documented as of this encounter Additional Source Comments The information contained in this document represents components of the legal health record. It is not the complete legal health record.[facility]
== END 2024-12-26 13:29 | disposition home or self-care (01) ==
LOC: HO.HMGCX 13:28
PROVIDERS: Visit Provider Physician Assistant
DX: S80.12XA Contusion of left lower leg, initial encounter (principal); M79.662 Pain in left lower leg; X58.XXXA Exposure to other specified factors, initial encounter; Y93.9 Activity, unspecified; Y92.9 Unspecified place or not applicable; Y99.9 Unspecified external cause status
CPT/HCPCS: 93971

== ENCOUNTER → 2024-12-26 13:31 | Outpatient (BNV) | payer BC, SELFPAY | PROVIDERS: Visit Provider Radiology Diagnostic Radiology | DX: R60.0 Localized edema (principal) | CPT/HCPCS: 93971 ==